=== PATIENT | male | born 1940 | race Caucasian/White ===

== ENCOUNTER 2023-06-18 08:51 | Outpatient (CLI) | payer OTHER, SELFPAY ==
[2023-06-18] MEDS: PERFLUTREN LIPID MICROSPHERES 2 ML VIAL IV (11:04)
== END 2023-06-18 08:52 | disposition home or self-care (01) ==
PROVIDERS: PCP Chiropractor; Visit Provider Chiropractor
DX: I25.10 Atherosclerotic heart disease of native coronary artery without angina pectoris (principal); I51.7 Cardiomegaly
CPT/HCPCS: 93306; Q9957